=== PATIENT | female | born 1955 | race Caucasian/White ===

== ENCOUNTER 2018-12-06 14:06 | Inpatient (IN) | payer BC ==
[2018-12-06] MEDS ORDERED: PENDING SANTYL ORDER FOR WOUND CARE XX (15:00)
[2018-12-06] MEDS ORDERED: DIPHENHYDRAMINE 25 MG CAP PO (15:30)
[2018-12-06] MEDS ORDERED: DOCUSATE SODIUM 100 MG CAP PO (15:30)
[2018-12-06] MEDS: RIVAROXABAN 10 MG TABLET PO (18:30)
[2018-12-06 19:45] LABS: ADD UMIC YES; UR ASCORBIC ACID NEGATIVE (NEGATIVE); UR BILIRUBIN (Dip) NEGATIVE (NEGATIVE); UR BLOOD (Dip) NEGATIVE (NEGATIVE); UR CLARITY CLEAR (CLEAR); UR COLOR YELLOW (YELLOW); UR GLUCOSE (Dip) NEGATIVE (NEGATIVE); UR KETONES (Dip) NEGATIVE (NEGATIVE); UR LEUKOCYTE ESTERASE (Dip) TRACE Leu/ul (NEGATIVE); UR NITRITE (Dip) NEGATIVE (NEGATIVE); UR RBC 0 /HPF (0-5); UR SPECIFIC GRAVITY (Dip) 1.005 (1.003-1.030); UR TOTAL PROTEIN (Dip) NEGATIVE (NEGATIVE); UR UROBILINOGEN (Dip) NEGATIVE (NEGATIVE); UR WBC 4 /HPF (0-5)
[2018-12-06] MEDS: ATORVASTATIN 10 MG TAB PO (20:04)
[2018-12-06] MEDS: TRIAMCINOLONE ACET 0.1% 15 GM CR TOP (20:09)
[2018-12-06] MEDS: oxyCODONE (CR) 10 MG TAB [oxyCONTIN] PO (20:09)
[2018-12-07 06:27] LABS: ADD MAN DIFF? NO
[2018-12-07] MEDS: PANTOPRAZOLE (EC) 40 MG TAB PO (06:38)
[2018-12-07] MEDS: LEVOTHYROXINE 112 MCG TAB PO (06:38)
[2018-12-07 06:41] LABS: HEMATOCRIT 31.6 % (37.0-47.0); HEMOGLOBIN 10.1 g/dl (12.0-16.0); LYMPHOCYTES # 2.2 10^3/ul (0.8-2.9); LYMPHOCYTES % 31.5 % (15.0-51.0); MEAN CORPUSCULAR HEMOGLOBIN 30.9 pg (29.0-33.0); MEAN CORPUSCULAR VOLUME 96.6 fl (82.0-101.0); MEAN PLATELET VOLUME 10.8 fl (7.4-10.4); MONOCYTE # 0.5 10^3/ul (0.3-0.9); MONOCYTES % 7.4 % (0.0-11.0); NEUTROPHIL # 4.2 10^3/ul (1.6-7.5); NEUTROPHILS % 59.4 % (39.0-77.0); PLATELET COUNT 284 10^3/UL (140-415); RED BLOOD COUNT 3.27 10^6/ul (4.20-5.40); RED CELL DISTRIBUTION WIDTH 14.4 % (11.5-14.5)
[2018-12-07 07:00] LABS: ALANINE AMINOTRANSFERASE 46 IU/L (13-69); ALBUMIN 3.2 g/dl (3.3-4.9); ALKALINE PHOSPHATASE 203 IU/L (42-121); ANION GAP 4 (5-13); ASPARTATE AMINO TRANSFERASE 27 IU/L (15-46); BILIRUBIN,INDIRECT 0.8 mg/dl (0-1.1); BILIRUBIN,TOTAL 0.8 mg/dl (0.2-1.3); BLOOD UREA NITROGEN 21 mg/dl (7-20); CALCIUM 9.5 mg/dl (8.4-10.2); CARBON DIOXIDE 30 mmol/L (21-31); CHLORIDE 104 mmol/L (97-110); CREATININE 0.75 mg/dl (0.44-1.00); Estimated GFR > 60 mL/min (>60); GLUCOSE 102 mg/dl (70-220); POTASSIUM 4.6 mmol/L (3.5-5.1); SODIUM 138 mmol/L (135-144); TOTAL PROTEIN 6.1 g/dl (6.1-8.1)
[2018-12-07 07:41] LABS: MAGNESIUM 2.3 mg/dl (1.7-2.5)
[2018-12-07] MEDS: LEVOTHYROXINE 125 MCG TAB PO (08:38)
[2018-12-07 08:55] LABS: IRON 44 ug/dl (35-150)
[2018-12-07 09:04] LABS: % IRON SATURATION 16 % SAT (22-52); TOTAL IRON BINDING CAPACITY 273 ug/dl (241-421)
[2018-12-07] MEDS: oxyCODONE (CR) 10 MG TAB [oxyCONTIN] PO ×2 (09:09→20:59)
[2018-12-07] MEDS: traMADol 50 MG TAB PO ×2 (09:09→21:01)
[2018-12-07] MEDS: TRIAMCINOLONE ACET 0.1% 15 GM CR TOP ×2 (09:10→21:04)
[2018-12-07] MEDS ORDERED: ACETAMINOPHEN 325 MG TAB PO (15:30)
[2018-12-07] MEDS ORDERED: BISACODYL 10 MG SUPP PR (15:30)
[2018-12-07] MEDS: DOCUSATE SODIUM 100 MG CAP PO ×2 (18:00→21:00)
[2018-12-07] MEDS: RIVAROXABAN 10 MG TABLET PO (18:00)
[2018-12-07] MEDS: ATORVASTATIN 10 MG TAB PO (20:59)
[2018-12-07] MEDS: SENNA TAB PO (21:00)
[2018-12-08] MEDS: LEVOTHYROXINE 125 MCG TAB PO (06:46)
[2018-12-08] MEDS: PANTOPRAZOLE (EC) 40 MG TAB PO (06:46)
[2018-12-08] MEDS: MAGNESIUM HYDROXIDE 30ML CUP PO (06:46)
[2018-12-08] MEDS: oxyCODONE (CR) 10 MG TAB [oxyCONTIN] PO ×2 (08:40→21:05)
[2018-12-08] MEDS: DOCUSATE SODIUM 100 MG CAP PO ×3 (08:41→21:05)
[2018-12-08] MEDS: LACTULOSE 30ML CUP PO (08:41)
[2018-12-08] MEDS: TRIAMCINOLONE ACET 0.1% 15 GM CR TOP ×2 (08:41→21:00)
[2018-12-08] MEDS: traMADol 50 MG TAB PO ×3 (08:45→21:05)
[2018-12-08] MEDS: RIVAROXABAN 10 MG TABLET PO (17:35)
[2018-12-08] MEDS: SENNA TAB PO (21:00)
[2018-12-08] MEDS: ATORVASTATIN 10 MG TAB PO (21:05)
[2018-12-09] MEDS: PANTOPRAZOLE (EC) 40 MG TAB PO (06:31)
[2018-12-09] MEDS: LEVOTHYROXINE 125 MCG TAB PO (06:31)
[2018-12-09] MEDS: traMADol 50 MG TAB PO ×4 (08:47→21:06)
[2018-12-09] MEDS: TRIAMCINOLONE ACET 0.1% 15 GM CR TOP ×2 (08:48→21:00)
[2018-12-09] MEDS: DOCUSATE SODIUM 100 MG CAP PO ×2 (08:48→21:05)
[2018-12-09] MEDS: oxyCODONE (CR) 10 MG TAB [oxyCONTIN] PO (09:00)
[2018-12-09] MEDS: METHOCARBAMOL 750 MG TAB PO ×2 (12:45→21:05)
[2018-12-09] MEDS ORDERED: oxyCODONE 5 MG TAB PO (14:00)
[2018-12-09] MEDS: ACETAMINOPHEN 500 MG TAB PO ×2 (14:00→22:23)
[2018-12-09] MEDS: RIVAROXABAN 10 MG TABLET PO (16:50)
[2018-12-09] MEDS: ATORVASTATIN 10 MG TAB PO (21:05)
[2018-12-09] MEDS: DICLOFENAC (EC) 75 MG TAB PO (21:05)
[2018-12-09] MEDS: SENNA TAB PO (21:05)
[2018-12-10] MEDS: PANTOPRAZOLE (EC) 40 MG TAB PO (06:32)
[2018-12-10] MEDS: LEVOTHYROXINE 125 MCG TAB PO (06:32)
[2018-12-10] MEDS: ACETAMINOPHEN 500 MG TAB PO ×3 (06:33→21:30)
[2018-12-10 06:40] LABS: ALANINE AMINOTRANSFERASE 32 IU/L (13-69); ALBUMIN 3.6 g/dl (3.3-4.9); ALKALINE PHOSPHATASE 173 IU/L (42-121); ANION GAP 5 (5-13); ASPARTATE AMINO TRANSFERASE 21 IU/L (15-46); BILIRUBIN,INDIRECT 0.7 mg/dl (0-1.1); BILIRUBIN,TOTAL 0.7 mg/dl (0.2-1.3); BLOOD UREA NITROGEN 19 mg/dl (7-20); CALCIUM 9.7 mg/dl (8.4-10.2); CARBON DIOXIDE 31 mmol/L (21-31); CHLORIDE 103 mmol/L (97-110); CREATININE 0.83 mg/dl (0.44-1.00); Estimated GFR > 60 mL/min (>60); GLUCOSE 105 mg/dl (70-220); POTASSIUM 4.7 mmol/L (3.5-5.1); SODIUM 139 mmol/L (135-144); TOTAL PROTEIN 6.6 g/dl (6.1-8.1)
[2018-12-10] MEDS: TRIAMCINOLONE ACET 0.1% 15 GM CR TOP ×2 (09:00→20:39)
[2018-12-10] MEDS: DICLOFENAC (EC) 75 MG TAB PO ×2 (09:15→20:38)
[2018-12-10] MEDS: DOCUSATE SODIUM 100 MG CAP PO ×2 (09:15→20:38)
[2018-12-10] MEDS: METHOCARBAMOL 750 MG TAB PO ×2 (09:16→20:38)
[2018-12-10] MEDS: traMADol 50 MG TAB PO ×4 (09:18→23:27)
[2018-12-10] MEDS: RIVAROXABAN 10 MG TABLET PO (17:15)
[2018-12-10] MEDS: ATORVASTATIN 10 MG TAB PO (20:38)
[2018-12-10] MEDS: SENNA TAB PO (20:38)
[2018-12-11] MEDS: traMADol 50 MG TAB PO ×5 (05:33→20:28)
[2018-12-11] MEDS: LEVOTHYROXINE 125 MCG TAB PO (05:34)
[2018-12-11] MEDS: PANTOPRAZOLE (EC) 40 MG TAB PO (05:34)
[2018-12-11] MEDS: ACETAMINOPHEN 500 MG TAB PO ×3 (05:34→21:50)
[2018-12-11] MEDS: DOCUSATE SODIUM 100 MG CAP PO ×2 (09:00→20:27)
[2018-12-11] MEDS: TRIAMCINOLONE ACET 0.1% 15 GM CR TOP ×2 (09:00→21:00)
[2018-12-11] MEDS: METHOCARBAMOL 750 MG TAB PO ×2 (10:11→20:29)
[2018-12-11] MEDS: DICLOFENAC (EC) 75 MG TAB PO ×2 (10:11→20:29)
[2018-12-11] MEDS: RIVAROXABAN 10 MG TABLET PO (18:08)
[2018-12-11] MEDS: ATORVASTATIN 10 MG TAB PO (20:29)
[2018-12-11] MEDS: SENNA TAB PO (21:00)
[2018-12-12] MEDS: PANTOPRAZOLE (EC) 40 MG TAB PO (06:03)
[2018-12-12] MEDS: traMADol 50 MG TAB PO ×4 (06:04→19:57)
[2018-12-12] MEDS: ACETAMINOPHEN 500 MG TAB PO ×3 (06:04→21:38)
[2018-12-12] MEDS: LEVOTHYROXINE 125 MCG TAB PO (06:04)
[2018-12-12] MEDS: METHOCARBAMOL 750 MG TAB PO ×2 (08:29→19:57)
[2018-12-12] MEDS: DICLOFENAC (EC) 75 MG TAB PO ×2 (08:29→19:57)
[2018-12-12] MEDS: DOCUSATE SODIUM 100 MG CAP PO ×2 (08:29→19:57)
[2018-12-12] MEDS: TRIAMCINOLONE ACET 0.1% 15 GM CR TOP ×2 (08:34→21:00)
[2018-12-12] MEDS: RIVAROXABAN 10 MG TABLET PO (17:36)
[2018-12-12] MEDS: ATORVASTATIN 10 MG TAB PO (19:58)
[2018-12-12] MEDS: SENNA TAB PO (21:00)
[2018-12-13] MEDS: LEVOTHYROXINE 125 MCG TAB PO (06:22)
[2018-12-13] MEDS: ACETAMINOPHEN 500 MG TAB PO ×2 (06:22→14:32)
[2018-12-13] MEDS: PANTOPRAZOLE (EC) 40 MG TAB PO (06:22)
[2018-12-13] MEDS: traMADol 50 MG TAB PO ×3 (07:23→15:44)
[2018-12-13] MEDS: DOCUSATE SODIUM 100 MG CAP PO (08:17)
[2018-12-13] MEDS: TRIAMCINOLONE ACET 0.1% 15 GM CR TOP (08:17)
[2018-12-13] MEDS: METHOCARBAMOL 750 MG TAB PO (08:17)
[2018-12-13] MEDS: DICLOFENAC (EC) 75 MG TAB PO (08:17)
== END 2018-12-13 16:35 | disposition home health service (06) | DRG 561 ==
LOC: VRC 14:06
DX: S72.342D Displaced spiral fracture of shaft of left femur, subsequent encounter for closed fracture with routine healing (principal); G89.11 Acute pain due to trauma; I10 Essential (primary) hypertension; E78.5 Hyperlipidemia, unspecified; E03.9 Hypothyroidism, unspecified; R79.89 Other specified abnormal findings of blood chemistry; D50.9 Iron deficiency anemia, unspecified
CPT/HCPCS: 73550; 80053; 81001; 82728; 83540; 83735; 84443; 85025; 87081; 87086; 97110; 97116; 97162; 97165; 97530; 97535